=== PATIENT | female | born 1970 | race Native Hawaiian/Other Pacific Islander ===

== ENCOUNTER 2024-06-18 18:15 | Emergency (ER) | payer OTHER, SELFPAY ==
[2024-06-18 18:24] VITALS: BP 100/61; PULSE 73; RESP 16; TEMP 36.8; O2SAT 99
--- NOTE | 2024-06-18 18:51 | ED.GENADULT ---
HPI - General Adult General Chief complaint: Head Injury/Pain Stated complaint: hit head on metal pipe Time Seen by Provider: 06/18/24 18:37 Source: patient Mode of arrival: ambulatory Limitations: no limitations History of Present Illness HPI narrative: 54-year-old female coming in today concerned about headache. Patient states that about 48 hours ago she was at work and she hit her head on a metal pipe. She had immediate pain over the left frontal region where she hit. It did not break skin, she did not have any bleeding. In the last 48 hours her symptoms have not worsened but she continues to have pain right where she was hit in the head. She denies confusion or vomiting. She felt slightly nauseated yesterday. She denies any vision change or changes in her hearing. She denies diffuse headache. She did go to work today and noticed that when she was doing heavy lifting the area of her head that was hit did hurt more. Patient states that she has hit her head in the past which caused vertigo and vomiting. Again she denies any dizziness or vertigo this time around. She has a past medical history also significant for diabetes and hyperlipidemia, unilateral hearing loss. Related Data Home Medications ?Medication ?Instructions ?Recorded ?Confirmed glipizide 10 mg tablet 10 mg PO BID 06/18/24 06/18/24 metformin 1,000 mg tablet 1,000 mg PO BID 06/18/24 06/18/24 simvastatin 10 mg tablet 5 mg PO QHS 06/18/24 06/18/24 Allergies Allergy/AdvReac Type Severity Reaction Status Date / Time No Known Drug Allergies Allergy Verified 06/18/24 18:29 Review of Systems Status of ROS: Reports: 10 or more systems reviewed and unremarkable except as noted in History and below Exam Narrative: Exam Narrative: Well-nourished well-developed patient in no acute distress. Alert and oriented x3. Answers questions appropriately. Mood and affect are appropriate. Thoughts are goal oriented and rational. No tangential or magical thinking noted. Patient speaks in full sentences without needing to catch her breath. HEENT: Normocephalic atraumatic. Pupils are equally round reactive to light. Extraocular muscles are intact. Conjunctivae are moist without any icterus noted. Moist mucous membranes. Posterior pharynx is normal. Neck is soft. I do not see any ecchymosis, broken skin, hematoma or abnormality noted of her scalp. She describes the area that she hit just above the hairline. Strength is 5/5 of the upper and lower extremities. Delete Cranial nerves 3-12 are normal. Delete There is no nystagmus either horizontally or vertically. Gait is normal. Const: Vital Signs, click to edit/add: Vital Signs - 24 hr 06/18/24 18:24 Temperature 98.2 F Pulse Rate [Pulse Oximeter] 73 Respiratory Rate 16 Blood Pressure [Ri ght Upper Arm] 100/61 Pulse Oximetry 99 Oxygen Delivery Me thod Room Air Course Vital Signs Vital signs: Initial Vital Signs Temperature 98.2 F 06/18/24 18:24 Temperature Source Temporal Artery Scan 06/18/24 18:24 Pulse Rate 73 06/18/24 18:24 Respiratory Rate 16 06/18/24 18:24 Blood Pressure 100/61 06/18/24 18:24 Blood Pressure Mean 74 06/18/24 18:24 Blood Pressure Position Sitting 06/18/24 18:24 Pulse Oximetry 99 06/18/24 18:24 Oxygen Delivery Method Room Air 06/18/24 18:24 Vital Signs Temperature 98.2 F 06/18/24 18:24 Pulse Rate 73 06/18/24 18:24 Respiratory Rate 16 06/18/24 18:24 Blood Pressure 100/61 06/18/24 18:24 Pulse Oximetry 99 06/18/24 18:24 Oxygen Delivery Method Room Air 06/18/24 18:24 Temperature 98.2 F 06/18/24 18:24 Pulse Rate 73 06/18/24 18:24 Respiratory Rate 16 06/18/24 18:24 Blood Pressure 100/61 06/18/24 18:24 Pulse Oximetry 99 06/18/24 18:24 Oxygen Delivery Method Room Air 06/18/24 18:24 Medical Decision Making MDM Narrative Medical decision making narrative: 54-year-old female status post closed head injury with localized headache. I do not think that we need to do any imaging today given the fact that her headache again, is localized and her symptoms are not worsening. We discussed the possibility of a mild concussion and brain rest. Discussed symptomatic treatment with anti-inflammatories and ice. I will give her a note for no heavy lifting at work for the next week. Discharge Plan Discharge Clinical Impression: Closed head injury, Mild concussion Patient Disposition: Home, Self-Care Condition: Stable Additional Instructions: Okay to use ibuprofen or Tylenol as needed for pain. Okay to use ice to the painful area, do not apply ice directly to the skin. Recommend no vigorous physical activity or heavy lifting for the next week. Prescriptions: No Action metformin 1,000 mg tablet 1,000 mg PO BID glipizide 10 mg tablet 10 mg PO BID simvastatin 10 mg tablet 5 mg PO QHS Stand Alone Forms: [employer] Info Instructions
== END 2024-06-18 19:09 | disposition home or self-care (01) ==
LOC: ED 19:07
PROVIDERS: Emergency Provider Family Medicine
DX: S06.0X0A Concussion without loss of consciousness, initial encounter (principal); W22.8XXA Striking against or struck by other objects, initial encounter
CPT/HCPCS: 99283

== ENCOUNTER 2025-01-12 21:23 | Emergency (ER) | payer BC, SELFPAY ==
--- OUTSIDE RECORDS SUMMARY | 2025-01-12 21:24 | XMS_ITS | Clinical Summary ---
Author Organization [facility] Address [address] [place] [address] Care Team Providers Care Supervisor Braiding Name Role Phone Needs Pcp, Assignment Primary Care Provider [phone] Source Comments You are receiving this document as you are listed as the primary care provider,follow-up provider, or the patient has been referred to you for consultation.This is in compliance with the Medicare andMedicaid EHR Incentive Program,which states Providers who transition their patient to another setting of careor provider of care or refers their patient to another provider of care shouldprovide summary care record for each transition of care or referral. [facility] Allergies No known active allergies Medications MetFORMIN (GLUMETZA) 1000 MG modified 24 hour release tablet Take 1 tablet by mouth daily (every 24 hours). 10/04/20 09 Active aspirin EC 81 MG enteric coated tablet Take 1 tablet by mouth daily (every 24 hours). 13 10/04/20 09 Active Multiple Vitamins-Minerals (MULTIVITAMIN OR) Take 1 tablet by mouth daily (every 24 hours). 100 13 10/04/20 09 Active glyBURIDE (AKA MICRONASE) 5 MG tablet Take 1 tablet by mouth daily (every 24 hours). LW Addl Instr:Indicated for: Diabetes 07/31/20 07 Active B COMPLEX-C OR Take 1 capsule by mouth daily (every 24 hours). 08/03/20 14 Active naproxen (NAPROSYN) 250 MG tabletIndications:C IN I (cervical intraepithelial neoplasia I) Take 250 mg by mouth two times daily as needed for Pain. Active polyethyl-propylene glycol (SYSTANE) 0.4-0.3 % PF eye dropsIndications:Pt erygium, bilateral Place 1-2 Drops into both eyes three times a day. 28 Each 06/29/20 19 Active Additional Information Patient not taking.Reported on 01/14/2020 Active Problems Problem Noted Date Diagnosed Date Low grade squamous intraepit helial lesion on cytologic smear of cervix (LGSIL) 03/10/2020 Overview (03/10/2020): [facility] Review: History: 05/2007: COLP- SE 1 05/2011: COLP- SE 1, ECC neg 10/2012: COLP neg 10/2012: LEEP- SE 1 05/2013: COLP neg 11/2013: COLP & ECC neg 05/2014: COLP- SE 1, ECC neg 06/2014: LEEP: SE 1, margins neg, ECC neg 07/2015: ASCUS, HPV neg 08/2015: COLP-Pathology suspicious but not diagnostic of low grade squamous intraepithelial lesion. 07/2016: COLP neg 07/2016: ASCUS, HPV neg 08/2016: COLP & ECC neg 09/2017: COLP- ASCUS 11/2018: ECC neg 12/2019: COLP & ECC neg Plan, per ASCCP guidelines: Repeat co-test in 12 months (12/2020) SE I (cervical intraepithelial neoplasia I) 09/2012 Type 2 diabetes mellitus, controlled 10/12/2011 Overview (07/17/2017): Type II or unspecified type diabetes mellitus without mention of complication, not stated as uncontrolled (HRC) Resolved Problems Problem Noted Date Diagnosed Date Resolved Date Abnormal Pap smear of cervix 03/12/2011 11/04/2012 Overview (07/17/2017): LGSIL ; Abnormal Pap smear Encounters Date Type Department Care Team Description 10/21/2024 8:20 AM ARCHITECTURE TECHNICIAN Lab Visit [facility] [address] [place] [address] Type 2 diabetes mellitus without complication, without long-term current use of insulin (HRC) from Last 3 Months Family History Medical History Relation Name Comments Diabetes Mother Cancer, Breast Negative Family History Cancer, Ovary Negative Family History Relation Name Status Comments Father Mother Alive Social History Tobacco Use Types Packs/Day Years Used Date Smoking Tobacco: Never Smokeless Tobacco: Never Alcohol Use Standard Drinks/Week Comments Yes 0 (1 standard drink = 0.6 oz pur e alcohol) occasionaly Comments No Sex and Gender Information Value Date Recorded Sex Assigned at Not on file Legal Sex Female 11:17 PM CDT Gender Identity Not on file Sexual Orientation Not on file Last Filed Vital Signs Vital Sign Reading Time Taken Comments Blood Pressure 115/56 01/14/2020 2:03 PM ARCHITECTURE TECHNICIAN Pulse 70 01/14/2020 2:03 PM ARCHITECTURE TECHNICIAN Temperature - - Respiratory Rate - - Oxygen Saturation - - Inhaled Oxygen Concentration - - Weight 49.8 kg (109 lb 11.2 oz) 01/14/2020 2:03 PM ARCHITECTURE TECHNICIAN Height 147.3 cm (4' 10) 09/07/2016 1:05 PM CDT Body Mass Index 22.93 09/07/2016 1:05 PM CDT Plan of Treatment Upcoming Encounters Date Type Department Care Team (Late st Contact Info) Description 02/06/2025 8:00 AM CDT Appointment [facility] [address] [place] [address] Health Maintenance Due Date Last Done Comments Colon Cancer Screening Plan Due 1968 Diabetes: Foot Exam 1968 Hep C Screening (Preventive Services) 1968 Pneumococcal (1 - PCV) 1974 HIV Screening (Preventive Services) 1984 Adult Preventive Visit 1986 DTaP/Tdap/Td (1 - Tdap) 1987 HepB (1) 1987 Pneumococcal 50+ Yrs (1 of 2 - PCV) 1987 Zoster/Shingles (1 of 2) 2018 Cervical Cancer Screening 01/14/20212019, 01/14/2020 (Completed), 12/09/2018, Additional history exists COVID-19 Vaccine ( season) 2024 03/08/2021, 02/08/2021 Influenza (#1) 2024 02/10/2008 Diabetes: Eye Exam 10/21/2024 10/21/2023, 1 12/21/2022, 07/07/2021, Additional history exists Diabetes: Creatinine 02/14/2025 02/15/2024, 08/16/2023, 05/17/2023, Additional history exists Diabetes: Urine Microalbumin 02/14/2025, 02/15/2023, 11/30/2022, Additional history exists Diabetes: HGBA1C 04/20/2025 10/21/2024, , 02/15/2024, Additional history exists Mammogram 10/10/2025 10/10/2024, 01/25, 09/02/2021, Additional history exists Diabetes: Lipid Panel 02/14/2029 02/15/2024 , 02/15/2023, 11/30/2022, Additional history exists HepA Aged Out No longer eligi ble based on patient's age to complete this topic Hib Aged Out No longer eligi ble based on patient's age to complete this topic IPV (Polio) Aged Out No longer eligi ble based on patient's age to complete this topic MCV4 Aged Out No longer eligi ble based on patient's age to complete this topic Meningococcal B Aged Out No longer el igible based on patient's age to complete this topic Procedures Procedure Name Priority Date/Time Associated Diagnosis Comments HGB A1C Routine 10/21/2024 7:51 AM ARCHITECTURE TECHNICIAN Type 2 diabetes mellitus without complication, without long-term current use of insulin (HRC) MM MAMMOGRAM SCREENING BILAT W 3D FABIANO W CAD Routine 10/10/2024 1:11 PM ARCHITECTURE TECHNICIAN Breast cancer screening by mammogram ALBUMIN/CREAT RATIO Routine 02/15/2024 1 0:07 AM CDT DM (dermatomyositis) (HRC) COMPREHENSIVE METABOLIC PANEL Routine 02/15/2024 9:45 AM CDT DM (dermatomyositis) (HRC) LIPID PANEL & DIRECT LDL (IF NEEDED) Routine 02/15/2024 9:45 AM CDT DM (dermatomyositis) (HRC) ANATOMICAL PATH LIQUID BASED Routine 08/07/2016 3:41 PM CDT from Last 3 Months or Most Recently Relevant to Health Maintenance Results * (ABNORMAL) Hgb A1C (10/21/2024 7:51 AM ARCHITECTURE TECHNICIAN) Hemoglobin A1C (Rapid) 7.5(H) <=5.6 % 10/21/2024 10:24 AM [facility] Estimated Average Glucose (Calc) 169 < 117 mg/dL 10/21/2024 10:24 AM [facility] Comment:Estimated average gl ucose (eAG) converts A1c into glucose units (mg/dL) and estimates average glucose over the past approximately 3 months. The eAG reference interval (<117 mg/dL) corresponds to an A1c of <5.7%. Blood Venipuncture / Unknown 10/21/2024 7:51 AM ARCHITECTURE TECHNICIAN 10/21/2024 8:36 AM ARCHITECTURE TECHNICIAN Narrative [facility] - 10/21/2024 10:24 AM ARCHITECTURE TECHNICIAN For patients not previously diagnosed with diabetes: 5.7-6.4%: Increased risk for diabetes 6.5% and greater: Diagnostic for diabetes For patients diagnosed with diabetes: <8.0%: Goal of therapy for ages 18-75 Clinicians may recommend a higher or lower goal for specific individuals. The test method used for this Hemoglobin A1c result can experience interference from elevated hemoglobin and other hemoglobin variants. In patients with results that do not correlate clinically, contact the lab for further direction. us Beena Barajas MD LAB_1 Final Result [facility] [address] [place] [address], [facility] * MM Mammogram Screening Bilat W 3D Fabiano W CAD (10/10/2024 1:11 PM ARCHITECTURE TECHNICIAN) Anatomical Region Laterality Modality Breast Bilateral Mammography Impressions 10/12/2024 10:17 AM ARCHITECTURE TECHNICIAN : ACR BI-RADS Category 1: Negative RECOMMENDATION: Follow Up Imaging in 12 months - Bilateral The results and recommendations of this examination will be communicated to the patient. Narrative 10/12/2024 10:17 AM ARCHITECTURE TECHNICIAN MM MAMMOGRAM SCREENING BILAT W 3D FABIANO W CAD performed on 10/10/24 FDA Accredited Facility: [facility] [phone] Compared to: 02/21/2023 MM Mammogram Screening Bilat W 3D Fabiano W CAD, 09/02/2021 MM Mammogram Screening Bilat W 3D Fabiano W CAD, and 01/21/2020 MM Mammogram Screening Bilat W 3D Fabiano W CAD FINDINGS: Bilateral screening mammogram was performed with the assistance of Computer-Aided Detection and breast tomosynthesis. The breasts are heterogeneously dense, which may obscure small masses. There is no radiographic evidence of malignancy. Beena Barajas MD RAD MADIE Final Result * (ABNORMAL) Albumin/Creatinine Ratio,Random Urine (02/15/2024 10:07 AM CDT) Albumin/Creati nine Ratio, Urine, Random 34(H) <30 mg/g 02/15/2024 12:22 PM T [facility] Albumin, Urine, Random 16.9 mg/L 02/15/2024 12:[address] [facility] Creatinine, Urine, Random 49 >20 mg/dL mg/dL 02/15/2024 12:[address] [facility] Urine Non-blood Collection / Unknown 02/15/2024 10:07 AM CDT 02/15/2024 10:07 AM CDT Beena Barajas MD LAB_1 Final Result [facility] [address] [place] [address] * Lipid Panel (reflex to Direct LDL if indicated) (02/15/2024 9:45 AM CDT) Cholesterol 148 0 - 199 mg/dL 02/15/2024 11:49 AM T [facility] Triglyceride 126 <=149 mg/dL 02/15/2024 11:[address] [facility] HDL Cholesterol 42 >=40 mg/dL 11:[address] [facility] LDL, Calculated 81 <130 mg/dL 11:[address] [facility] Non HDL Chol, Calculated 106 <=159 mg/dL 02/15/2024 11:[address] [facility] Cholesterol/HDL Ratio 3.5 <=5.0 02/15/2024 11:[address] [facility] Hours Fasting 10.0 8 - 12 Hours 02/15/2024 11:[address] [facility] Blood Venipuncture / Unknown 02/15/2024 9:45 AM CDT 02/15/2024 9:53 AM CDT us Beena Barajas MD LAB_1 Final Result [facility] [address] [place] [address] * (ABNORMAL) Comp Metabolic Panel (02/15/2024 9:45 AM CDT) Sodium 137 136 - 145 mmol/L 02/15/2024 11:[address] [facility] Potassium 4.4 3.5 - 5.1 mmol/L 02/15/2024 11:[address] [facility] Chloride 104 98 - 109 mmol/L 02/15/2024 11:[address] [facility] CO2 24 20 - 29 mmol/L 02/15/2024 11:[address] [facility] Anion Gap 9 7 - 16 mmol/L 02/15/2024 11:[address] [facility] Calcium 9.9 8.4 - 10.4 mg/dL 02/15/2024 11:[address] [facility] BUN 27(H) 7 - 26 mg/dL 02/15/2024 11:[address] [facility] Creatinine 1.30(H) 0.55 - 1.02 mg/dL 02/15/2024 11:[address] [facility] Alkaline Phosphatase 116 40 - 150 U/L 02/15/2024 11:[address] [facility] AST (SGOT) 22 10 - 40 U/L 02/15/2024 11:[address] [facility] ALT (SGPT) 17 <=55 U/L 02/15/2024 11:[address] [facility] Bilirubin, Total 0.3 0.2 - 1.2 mg/dL 02/15/2024 11:[address] [facility] Protein, Total 7.6 6.4 - 8.3 g/dL 02/15/2024 11:[address] [facility] Albumin 3.7 3.5 - 5.0 g/dL 02/15/2024 11:[address] [facility] Glucose 131(H) 70 - 100 mg/dL 02/15/2024 11:[address] [facility] Comment:The given reference range is for the fasting state. Non-fasting reference range for glucose is 70 - 180 mg/dL. GFR, Estimated 49(L) >60 mL/min/1.7 3m2 02/15/2024 11:[address] [facility] Hours Fasting 10.0 8 - 12 Hours 02/15/2024 11:[address] [facility] Blood Venipuncture / Unknown 02/15/2024 9:45 AM CDT 02/15/2024 9:53 AM CDT Narrative [facility] - 02/15/2024 11:49 AM CDT The National Kidney Disease Education Program suggests measuring Cystatin C in patients with eGFRcrea of 45 to 59 ml/min/1.73^2 who do not have other markers of kidney damage (i.e. elevated urine Albumin/Creatinine Ratio or a prior Cystatin C confirming the presence of chronic kidney disease). us Beena Barajas MD LAB_1 Final Result [facility] [address] [place] [address], [facility] * Pap Smear (08/07/2016 3:41 PM CDT) 08/07/2016 3:41 PM CDT Narrative [facility] - 08/14/2016 5:30 PM CDT FINAL GYNECOLOGICAL CYTOLOGY REPORT Pathology #: [id number] Date Obtained: 08/07/2016 Date Received: 08/08/2016 [id number] INTERPRETATION/RESULTS: Atypical squamous cells of undetermined significance (ASCUS). If requested and applicable, HPV testing will be performed and reported separately, per ACOG guidelines. SPECIMEN ADEQUACY: Satisfactory for Evaluation. Endocervical cells/transformation zone component present. Verified on 08/14/2016 by KATERINA BLAKE MD (electronic signature) CLINICAL NOTES: Abnormal bleeding: No, LMP: 2013, Menstrual status: Post Menopausal, Current form of therapy: None apply LIQUID BASED PAP SMEAR SPECIMEN TYPE: ROUTINE CERVICAL PAP TEST PLEASE NOTE: The pap smear is a screening test designed to aid in the detection of cervical cancer and its precursor lesions. It is not a diagnostic procedure and should not be used as the sole means of detecting cervical cancer. Both false-positive and false-negative reports may occur. Performed at [address] [address] us Darnell Torres MD LAB_1 Final Res ult [facility] [address] [place] [address] [id number] from Last 3 Months or Most Recently Relevant to Health Maintenance Care Teams Supervisor Braiding Relationship Specialty Start Date End Date Needs PcpJames [place], [place] [id number] PCP - General 11/04/13
--- OUTSIDE RECORDS SUMMARY | 2025-01-12 21:24 | XMS_ITS | Clinical Summary ---
Author Organization [facility] Address [address] [place] [id number] Care Team Providers Care Director Camp Name Role Phone Beena Barajas MD Primary Care Provider [phone] Allergies No known active allergies Medications GLYBURIDE 5 MG TAB take 1 tablet (5 mg) by oral route once daily before breakfast Active metFORMIN sustained release (GLUMETZA) 1,000 mg tablet Take 1 tablet by mouth 2 times daily. 9 Active naproxen (NAPROSYN) 250 mg tablet Take 250 mg by mouth 2 times daily if needed. 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 Calcified, inactive lesions only. Discussed with ID, no treatment or follow-up needed unless new neurologic sx such as seizure. Presbyopia 06/07/2017 Alternating exotropia 06/07/2017 Pterygium of both eyes 06/07/2017 DM type 2 (diabetes mellitus, type 2) Encounters Date Type Department Care Team Description 01/11/2025 Nurse Triage [facility] [place] [address] [place] [address] Beena Barajas MD Flank Pain from Last 3 Months Immunizations Name Administration Dates Next Due Influenza A (H1N1), Inactivated 11/12/2009 Influenza, IIV3 (Age >=3 years) 02/10/2008 Family History Medical History Relation Name Comments Diabetes Mother Relation Name Status Comments Mother Social History Tobacco Use Types Packs/Day Years Used Date Smoking Tobacco: Never Passive Smoke Exposure: Never Smokeless Tobacco: Never Tobacco Cessation:Counseling Given: Not Answered Alcohol Use Standard Drinks/Week Comments Not Currently 0 (1 standard drink = 0.6 oz pur e alcohol) ocassions PHQ-2 Answer Date Recorded PHQ-2 TOTAL SCORE 0 02/29/2020 Social Connections Answer Date Recorded Frequency of Communication with Friends and Fami ly Not on file 11/25/2021 Financial Resource Strain Answer Date R ecorded Difficulty of Paying Living Expenses Not on file 11/25/2021 Difficulty of Paying Living Expenses Not on file 11/25/2021 Comments No Sex and Gender Information Value Date Recorded Sex Assigned at Not on file Legal Sex Female 7:22 AM [employer]Y [employer] Gender Identity Not on file Sexual Orientation Not on file 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 on file Not on file Not on file Obstetrics History Last Filed Vital Signs Vital Sign Reading Time Taken Comments Blood Pressure 105/52 06/18/2024 3:53 PM CDT MAP - 73 Pulse 74 06/18/2024 3:53 PM CDT Temperature 37 C (98.6 F) 06/18/2024 3:53 PM CDT Respiratory Rate 16 06/18/2024 3:53 PM CDT Oxygen Saturation 98% 06/18/2024 3:53 PM CDT Inhaled Oxygen Concentration - - Weight 48.1 kg (106 lb) 03/21/2020 12:00 PM CDT Height 148.6 cm (4' 10.5) 03/09/2020 11:20 AM C DT Body Mass Index 21.77 03/09/2020 11:20 AM CDT Plan of Treatment Upcoming Encounters Date Type Department Care Team (Late st Contact Info) Description 01/14/2025 10:50 AM HONEY PRODUCER Office Visit [facility] [address] [place] [address] Nava Melo MD [address] [place] [address] Health Maintenance Due Date Last Done Comments Tdap 1979 HIV for age 15-65 1983 Hepatitis C screening for ag e 18-79 1986 Pneumococcal series for age 50+ (1 of 2 - PCV) 1987 Tetanus booster 1988 Pap test for age 21-65 1989 Colonoscopy through age 75 2013 Lipids for age 45-75 2013 Zoster (shingles) series for age 50+ (1 of 2) 2018 Mammogram for age 45-75 11/28/2019 11/28/2018 Depression screening for age 12+ 03/03/2021 03/03/2020, 02/29/2020, 12/03/2018 BMI (ht and wt on same day) for age 18+ 03/09/2021 03/09/2020, 02/29/2020, 12/03/2018, Additional history exists COVID-19 vaccine series ( season) 2024 03/08/2021, 02/08/2021 Influenza for age 50-64 07/26/2024 11/12/2009, 02/09 Procedures Procedure Name Priority Date/Time Associated Diagnosis Comments XR MAMMO FABIANO BILAT SCREEN Routine 11/28/2018 3:09 PM HONEY PRODUCER Visit for screening mammogram from Last 3 Months or Most Recently Relevant to Health Maintenance Results * XR MAMMO FABIANO BILAT SCREEN (11/28/2018 3:09 PM HONEY PRODUCER) Anatomical Region Laterality Modality BREASTS, Breast Left, Breast Right Bilateral Mammography Impressions 12/01/2018 11:06 AM HONEY PRODUCER There is no radiographic evidence for malignancy. Recommend annual mammograms. A lay language report of this examination will be provided to the patient. MAMMOGRAM ASSESSMENT: ACR 1 Negative Narrative 12/01/2018 11:06 AM HONEY PRODUCER XR MAMMO FABIANO BILAT SCREEN [[id number]] CLINICAL HISTORY: This is an asymptomatic 48 y.o. patient. INDICATION FOR EXAM: Mammogram Screening. TECHNIQUE: CC & MLO views were obtained. This digital study was evaluated with the assistance of Computer-Aided Detection. Breast Tomosynthesis was used in interpretation. COMPARISON FILM: Yes 08/14/17 MP GONZALEZ FINDINGS: Mammographically, the breast tissue is heterogeneously dense, which could obscure detection of small masses. There are no dominant masses, suspicious micro calcifications or areas of architectural distortion. us Beena Barajas MD MAMMO Final Result from Last 3 Months or Most Recently Relevant to Health Maintenance Care Teams Director Camp Relationship Specialty Start Date End Date Beena Barajas MD [facility] [place] [address] PCP - General Family Practice 01/18/21
[2025-01-12 21:29] VITALS: BP 161/85; PULSE 88; RESP 16; TEMP 35.9; O2SAT 98
[2025-01-12 21:48] LABS: Appearance Urine Clear (Clear); Bilirubin Urine Negative (Negative); Blood Urine Trace-intact (Negative); Color Urine Yellow (Yellow); Glucose Urine Negative (Negative); Ketones Urine Negative (Negative); Leukocyte Esterase Urine Negative (Negative); Nitrite Urine Negative (Negative); Protein Urine Negative (Negative); Urobilinogen Urine 0.2 (0.2-1.0)
[2025-01-12 22:24] LABS: RBC Urine 0-2 (0-2); WBC Urine 0-2 (0-5)
--- NOTE | 2025-01-12 22:24 | ED_ITS ---
HPI - General Adult General Date Seen: 01/12/25 Chief complaint: Chest Pain Stated complaint: chest pain Time Seen by Provider: 01/12/25 21:24 Source: patient and family (Daughter is interpreting) Mode of arrival: ambulatory Limitations: no limitations History of Present Illness HPI narrative: Patient is a 54-year-old female with a history of diabetes on metformin and glipizide presenting to the emergency department for multiple complaints. For the past 2 days she has been having some epigastric pain that she states feels like it goes up to her chest. Has some burning sensation with that. States she will have pain in her upper abdomen/lower chest when she takes a deep breath. No history of blood clots. Denies any other chest pain. No history of heart disease. No previous abdominal surgeries. Is also having left flank pain. She has been having issues with her left flank pain for several months and was told it was a.m. muscle strain but has been worse over the past few days. States will be a sharp pain in her left back that is new for her. Denies fevers, chills, diarrhea, constipation, headache, vision changes, weakness, numbness. She has been having a mild cough to which she states will make her left flank pain worse. Has not had any nausea. No other concerns noted. Related Data Home Medications ?Medication ?Instructions ?Recorded ?Confirmed glipizide 10 mg tablet 10 mg PO BID 06/18/24 01/12/25 metformin 1,000 mg tablet 1,000 mg PO BID 06/18/24 01/12/25 simvastatin 10 mg tablet 5 mg PO QHS 06/18/24 01/12/25 Previous Rx's ?Medication ?Instructions ?Recorded ketorolac 10 mg tablet 10 mg PO Q6H PRN pain #20 tabs 01/12/25 oseltamivir 75 mg capsule 75 mg PO BID 5 days #10 caps 01/12/25 pantoprazole 40 mg tablet,delayed 40 mg PO DAILY #10 tabs 01/12/25 release Allergies Allergy/AdvReac Type Severity Reaction Status Date / Time No Known Drug Allergies Allergy Verified 06/18/24 18:29 Review of Systems Status of ROS: Reports: 10 or more systems reviewed and unremarkable except as noted in History and below PFSH PFSH Social History Do you use any of these nicotine containing products: None How often do you have a drink containing alcohol: never AUDIT-C Alcohol total score: 0 Non-prescribed substance use: denies use Exam Narrative: Exam Narrative: Const: Well-nourished, Well-developed, in mild distress Eyes: PERRL, no conjunctival injection, and symmetrical lids HENT: Atraumatic external nose and ears. Moist mucous membranes. Neck: Symmetric, trachea midline, No thyromegaly. CVS: RRR, No murmurs or gallops. Peripheral pulses 2+ and equal in all extremities RESP: Unlabored respiratory effort. Clear to auscultation bilaterally. GI: Epigastric tenderness, Nondistended, No rebound or guarding. No CVA tenderness MSK:Extremities w/o deformity, Normal Active ROM Skin: Warm, Dry. No rashes or lesions. Neuro: Normal Muscle tone, No focal neurological deficits. Psych: Awake, Alert, & Oriented x3. Appropriate mood and affect. Const: Vital Signs, click to edit/add: Vital Signs - 24 hr 01/12/25 21:29 Temperature 96.7 F L Pulse Rate [Pulse Oximeter] 88 Respiratory Rate 16 Blood Pressure [Ri ght Upper Arm] 161/85 H Pulse Oximetry 98 Oxygen Delivery Me thod Room Air Course Vital Signs Vital signs: Initial Vital Signs Temperature 96.7 F L 01/12/25 21:29 Temperature Source Temporal Artery Scan 01/12/25 21:29 Pulse Rate 88 01/12/25 21:29 Respiratory Rate 16 01/12/25 21: Blood Pressure 161/85 H 01/12/25 21:29 Blood Pressure Mean 110 H 01/12/25 21:29 Blood Pressure Position Sitting 01/12/25 21:29 Pulse Oximetry 98 01/12/25 21:29 Oxygen Delivery Method Room Air 01/12/25 21:29 Vital Signs Temperature 96.7 F L 01/12/25 21:29 Pulse Rate 88 01/12/25 21:29 Respiratory Rate 16 01/12/25 21:29 Blood Pressure 161/85 H 01/12/25 21:29 Pulse Oximetry 98 01/12/25 21:29 Oxygen Delivery Method Room Air 01/12/25 21:29 Temperature 96.7 F L 01/12/25 21:29 Pulse Rate 88 01/12/25 21:29 Respiratory Rate 16 01/12/25 21:29 Blood Pressure 161/85 H 01/12/25 21:29 Pulse Oximetry 98 01/12/25 21:29 Oxygen Delivery Method Room Air 01/12/25 21:29 Medications Administered Medications: Discontinued Medications Generic Name Dose Route Start Last Admin Trade Name Lissette PRN Reason Stop Dose Admin Ketorolac Tromethamine 15 mg 01/12/25 21:54 01/12/25 22:33 Ketorolac 15 Mg/Ml Inj IVP 01/12/25 21:55 15 mg ONCE ONE Administration Lidocaine/Aluminum/Magnesium/Simeth 30 ml 01/12/25 22:24 01/12/25 22:38 Gi Cocktail (Visc Lido/Antacid) 30 Ml PO 01/12/25 22:25 30 ml ONCE ONE Administration Medical Decision Making MDM Narrative Medical decision making narrative: Patient is a 54-year-old female presenting for multiple complaints. Is unclear if she is truly having chest pain or shortness of breath or so this is more re lated to her abdominal pain. Will evaluate her for blood clot due to pain with deep breaths. Will hold off on choosing imaging until D-dimer returns. Imaging also look for pneumothorax or pneumonia. EKG and troponin order to look for signs of ACS as epigastric pain can be a sign of heart disease. As she is otherwise stable aortic aneurysm and aortic dissection seem unlikely. For her flank pain this could be an exacerbation of her previous muscle strain but will need a CT scan to rule out any nephrolithiasis or possible pyelonephritis. Lipase ordered shows check for pancreatitis for epigastric pain. Likely her epigastric pain is related to gastritis. Will also order urinalysis, COVID/flu/RSV, CBC, CMP, magnesium. GI cocktail ordered to see if it helps with her epigastric pain. Toradol given for flank pain. D-dimer within normal limits. Chest x-ray will be ordered. She is flu positive. This is likely the cause of much of her symptoms. She has a slightly elevated lipase but not high enough to be consistent with pancreatitis. She is feeling better after the GI cocktail and Toradol. White blood cell count is slightly low but this is consistent with a viral infection. Urinalysis shows no concerning findings. EKG and troponin shows no concerning findings. Imaging reviewed by myself and the radiologist shows no acute concerning abnormalities. Most likely or symptoms related to her influenza. On my review vital signs are stable throughout time in in the emergency department. Oximetry stayed in the mid to high 90s. vp delivery showed no concerning arrhythmias. EKG and troponin showed no acute concerning abnormalities. At this point I believe she is safe for discharge. 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 Will also give her an antacid for her stomach. Also gave her Toradol for her pain. She is agreeable to this plan. Lab Data Labs: Lab Results 01/12/25 01/12/25 01/12/25 Range/Units 21:41 21:55 22:00 WBC 3.11 L (4.50-11.00) K/uL RBC 3.64 L (4.00-5.20) m/uL Hgb 9.8 L (12.0-16.0) gm/dL Hct 30.6 L (33.0-51.0) % MCV 84 (80-100) fL MCH 27 (26-34) pg MCHC 32 (32-36) gm/dL RDW Coeff of Zane 14.3 (11.5-15.5) % Plt Count 211 (140-440) K/uL Neut % (Auto) 53.4 (42.0-72.0) % Lymph % (Auto) 32.8 (20-44) % Kane % (Auto) 9.3 (0.0-11.0) % Eos % (Auto) 3.9 (0.0-7.0) % Baso % (Auto) 0.3 (0.0-3.0) % Neut # (Auto) 1.70 (1.7-7.0) K/uL Lymph # (Auto) 1.00 (0.90-2.90) K/uL Kane # (Auto) 0.30 (0.00-0.90) K/UL Eos # (Auto) 0.10 (0.00-0.50) K/uL Baso # (Auto) 0.00 (0.00-0.30) K/uL Abs Immat Gran (auto) 0.00 (0.00-0.30) K/uL Imm/Tot Granulo (auto) 0.3 % D-Dimer Quant (PE/DVT) 0.32 (0.00-0.50) ug/ml Sodium Cancelled Potassium Chloride Carbon Dioxide Anion Gap BUN Creatinine Estimated Creat Clear Estimated GFR Glucose Calcium Magnesium (1.5-2.6) mg/dL Total Bilirubin AST ALT Alkaline Phosphatase Troponin I (0.01-0.04) ng/mL Total Protein Albumin Lipase (23-300) U/L Urine Color Yellow (Yellow) Urine Appearance Clear (Clear) Urine pH 6.0 (5.0-8.5) Ur Specific [place] 1.010 (1.000-1.030) Urine Protein Negative (Negative) Urine Glucose (UA) Negative (Negative) Urine Ketones Negative (Negative) Urine Blood Trace-intact A (Negative) Urine Nitrite Negative (Negative) Urine Bilirubin Negative (Negative) Urine Urobilinogen 0.2 (0.2-1.0) Ur Leukocyte Esterase Negative (Negative) Urine RBC 0-2 (0-2) Urine WBC 0-2 (0-5) Ur Squamous Epith Cells None (None-Few) Urine Bacteria None (None) SARS-CoV-2 (PCR) (Negative) Influenza Type A (PCR) (Negative) Influenza Type B (PCR) (Negative) RSV (PCR) (Negative) POC Troponin I 0.00 L (0.01-0.04) ng/ml 01/12/25 01/12/25 01/12/25 Range/Units 22:00 22:00 22:00 WBC (4.50-11.00) K/uL RBC (4.00-5.20) m/uL Hgb (12.0-16.0) gm/dL Hct (33.0-51.0) % MCV (80-100) fL MCH (26-34) pg MCHC (32-36) gm/dL RDW Coeff of Zane (11.5-15.5) % Plt Count (140-440) K/uL Neut % (Auto) (42.0-72.0) % Lymph % (Auto) (20-44) % Kane % (Auto) (0.0-11.0) % Eos % (Auto) (0.0-7.0) % Baso % (Auto) (0.0-3.0) % Neut # (Auto) (1.7-7.0) K/uL Lymph # (Auto) (0.90-2.90) K/uL Kane # (Auto) (0.00-0.90) K/UL Eos # (Auto) (0.00-0.50) K/uL Baso # (Auto) (0.00-0.30) K/uL Abs Immat Gran (auto) (0.00-0.30) K/uL Imm/Tot Granulo (auto) % D-Dimer Quant (PE/DVT) (0.00-0.50) ug/ml Sodium 134 L Potassium Cancelled 4.5 Chloride Cancelled 100 Carbon Dioxide Cancelled Anion Gap BUN Creatinine Estimated Creat Clear Estimated GFR Glucose Calcium Magnesium (1.5-2.6) mg/dL Total Bilirubin AST ALT Alkaline Phosphatase Troponin I (0.01-0.04) ng/mL Total Protein Albumin Lipase (23-300) U/L Urine Color (Yellow) Urine Appearance (Clear) Urine pH (5.0-8.5) Ur Specific [place] (1.000-1.030) Urine Protein (Negative) Urine Glucose (UA) (Negative) Urine Ketones (Negative) Urine Blood (Negative) Urine Nitrite (Negative) Urine Bilirubin (Negative) Urine Urobilinogen (0.2-1.0) Ur Leukocyte Esterase (Negative) Urine RBC (0-2) Urine WBC (0-5) Ur Squamous Epith Cells (None-Few) Urine Bacteria (None) SARS-CoV-2 (PCR) (Negative) Influenza Type A (PCR) (Negative) Influenza Type B (PCR) (Negative) RSV (PCR) (Negative) POC Troponin I (0.01-0.04) ng/ml 01/12/25 01/12/25 01/12/25 Range/Units 22:00 22:00 22:00 WBC (4.50-11.00) K/uL RBC (4.00-5.20) m/uL Hgb (12.0-16.0) gm/dL Hct (33.0-51.0) % MCV (80-100) fL MCH (26-34) pg MCHC (32-36) gm/dL RDW Coeff of Zane (11.5-15.5) % Plt Count (140-440) K/uL Neut % (Auto) (42.0-72.0) % Lymph % (Auto) (20-44) % Kane % (Auto) (0.0-11.0) % Eos % (Auto) (0.0-7.0) % Baso % (Auto) (0.0-3.0) % Neut # (Auto) (1.7-7.0) K/uL Lymph # (Auto) (0.90-2.90) K/uL Kane # (Auto) (0.00-0.90) K/UL Eos # (Auto) (0.00-0.50) K/uL Baso # (Auto) (0.00-0.30) K/uL Abs Immat Gran (auto) (0.00-0.30) K/uL Imm/Tot Granulo (auto) % D-Dimer Quant (PE/DVT) (0.00-0.50) ug/ml Sodium Potassium Chloride Carbon Dioxide 23 Anion Gap Cancelled 11 BUN Cancelled 26 Creatinine Cancelled Estimated Creat Clear Estimated GFR Glucose Calcium Magnesium (1.5-2.6) mg/dL Total Bilirubin AST ALT Alkaline Phosphatase Troponin I (0.01-0.04) ng/mL Total Protein Albumin Lipase (23-300) U/L Urine Color (Yellow) Urine Appearance (Clear) Urine pH (5.0-8.5) Ur Specific [place] (1.000-1.030) Urine Protein (Negative) Urine Glucose (UA) (Negative) Urine Ketones (Negative) Urine Blood (Negative) Urine Nitrite (Negative) Urine Bilirubin (Negative) Urine Urobilinogen (0.2-1.0) Ur Leukocyte Esterase (Negative) Urine RBC (0-2) Urine WBC (0-5) Ur Squamous Epith Cells (None-Few) Urine Bacteria (None) SARS-CoV-2 (PCR) (Negative) Influenza Type A (PCR) (Negative) Influenza Type B (PCR) (Negative) RSV (PCR) (Negative) POC Troponin I (0.01-0.04) ng/ml 01/12/25 01/12/25 01/12/25 Range/Units 22:00 22:00 22:00 WBC (4.50-11.00) K/uL RBC (4.00-5.20) m/uL Hgb (12.0-16.0) gm/dL Hct (33.0-51.0) % MCV (80-100) fL MCH (26-34) pg MCHC (32-36) gm/dL RDW Coeff of Zane (11.5-15.5) % Plt Count (140-440) K/uL Neut % (Auto) (42.0-72.0) % Lymph % (Auto) (20-44) % Kane % (Auto) (0.0-11.0) % Eos % (Auto) (0.0-7.0) % Baso % (Auto) (0.0-3.0) % Neut # (Auto) (1.7-7.0) K/uL Lymph # (Auto) (0.90-2.90) K/uL Kane # (Auto) (0.00-0.90) K/UL Eos # (Auto) (0.00-0.50) K/uL Baso # (Auto) (0.00-0.30) K/uL Abs Immat Gran (auto) (0.00-0.30) K/uL Imm/Tot Granulo (auto) % D-Dimer Quant (PE/DVT) (0.00-0.50) ug/ml Sodium Potassium Chloride Carbon Dioxide Anion Gap BUN Creatinine 1.3 Estimated Creat Clear Cancelled Estimated GFR Cancelled 48 Glucose Cancelled 110 Calcium Cancelled Magnesium (1.5-2.6) mg/dL Total Bilirubin AST ALT Alkaline Phosphatase Troponin I (0.01-0.04) ng/mL Total Protein Albumin Lipase (23-300) U/L Urine Color (Yellow) Urine Appearance (Clear) Urine pH (5.0-8.5) Ur Specific [place] (1.000-1.030) Urine Protein (Negative) Urine Glucose (UA) (Negative) Urine Ketones (Negative) Urine Blood (Negative) Urine Nitrite (Negative) Urine Bilirubin (Negative) Urine Urobilinogen (0.2-1.0) Ur Leukocyte Esterase (Negative) Urine RBC (0-2) Urine WBC (0-5) Ur Squamous Epith Cells (None-Few) Urine Bacteria (None) SARS-CoV-2 (PCR) (Negative) Influenza Type A (PCR) (Negative) Influenza Type B (PCR) (Negative) RSV (PCR) (Negative) POC Troponin I (0.01-0.04) ng/ml 01/12/25 01/12/25 01/12/25 Range/Units 22:00 22:00 22:00 WBC (4.50-11.00) K/uL RBC (4.00-5.20) m/uL Hgb (12.0-16.0) gm/dL Hct (33.0-51.0) % MCV (80-100) fL MCH (26-34) pg MCHC (32-36) gm/dL RDW Coeff of Zane (11.5-15.5) % Plt Count (140-440) K/uL Neut % (Auto) (42.0-72.0) % Lymph % (Auto) (20-44) % Kane % (Auto) (0.0-11.0) % Eos % (Auto) (0.0-7.0) % Baso % (Auto) (0.0-3.0) % Neut # (Auto) (1.7-7.0) K/uL Lymph # (Auto) (0.90-2.90) K/uL Kane # (Auto) (0.00-0.90) K/UL Eos # (Auto) (0.00-0.50) K/uL Baso # (Auto) (0.00-0.30) K/uL Abs Immat Gran (auto) (0.00-0.30) K/uL Imm/Tot Granulo (auto) % D-Dimer Quant (PE/DVT) (0.00-0.50) ug/ml Sodium Potassium Chloride Carbon Dioxide Anion Gap BUN Creatinine Estimated Creat Clear Estimated GFR Glucose Calcium 9.4 Magnesium 1.8 (1.5-2.6) mg/dL Total Bilirubin Cancelled 0.3 AST Cancelled 33 ALT Cancelled Alkaline Phosphatase Troponin I (0.01-0.04) ng/mL Total Protein Albumin Lipase (23-300) U/L Urine Color (Yellow) Urine Appearance (Clear) Urine pH (5.0-8.5) Ur Specific [place] (1.000-1.030) Urine Protein (Negative) Urine Glucose (UA) (Negative) Urine Ketones (Negative) Urine Blood (Negative) Urine Nitrite (Negative) Urine Bilirubin (Negative) Urine Urobilinogen (0.2-1.0) Ur Leukocyte Esterase (Negative) Urine RBC (0-2) Urine WBC (0-5) Ur Squamous Epith Cells (None-Few) Urine Bacteria (None) SARS-CoV-2 (PCR) (Negative) Influenza Type A (PCR) (Negative) Influenza Type B (PCR) (Negative) RSV (PCR) (Negative) POC Troponin I (0.01-0.04) ng/ml 01/12/25 01/12/25 01/12/25 Range/Units 22:00 22:00 22:00 WBC (4.50-11.00) K/uL RBC (4.00-5.20) m/uL Hgb (12.0-16.0) gm/dL Hct (33.0-51.0) % MCV (80-100) fL MCH (26-34) pg MCHC (32-36) gm/dL RDW Coeff of Zane (11.5-15.5) % Plt Count (140-440) K/uL Neut % (Auto) (42.0-72.0) % Lymph % (Auto) (20-44) % Kane % (Auto) (0.0-11.0) % Eos % (Auto) (0.0-7.0) % Baso % (Auto) (0.0-3.0) % Neut # (Auto) (1.7-7.0) K/uL Lymph # (Auto) (0.90-2.90) K/uL Kane # (Auto) (0.00-0.90) K/UL Eos # (Auto) (0.00-0.50) K/uL Baso # (Auto) (0.00-0.30) K/uL Abs Immat Gran (auto) (0.00-0.30) K/uL Imm/Tot Granulo (auto) % D-Dimer Quant (PE/DVT) (0.00-0.50) ug/ml Sodium Potassium Chloride Carbon Dioxide Anion Gap BUN Creatinine Estimated Creat Clear Estimated GFR Glucose Calcium Magnesium (1.5-2.6) mg/dL Total Bilirubin AST ALT 24 Alkaline Phosphatase Cancelled 114 Troponin I < 0.01 L (0.01-0.04) ng/mL Total Protein Cancelled 7.2 Albumin Cancelled Lipase (23-300) U/L Urine Color (Yellow) Urine Appearance (Clear) Urine pH (5.0-8.5) Ur Specific [place] (1.000-1.030) Urine Protein (Negative) Urine Glucose (UA) (Negative) Urine Ketones (Negative) Urine Blood (Negative) Urine Nitrite (Negative) Urine Bilirubin (Negative) Urine Urobilinogen (0.2-1.0) Ur Leukocyte Esterase (Negative) Urine RBC (0-2) Urine WBC (0-5) Ur Squamous Epith Cells (None-Few) Urine Bacteria (None) SARS-CoV-2 (PCR) (Negative) Influenza Type A (PCR) (Negative) Influenza Type B (PCR) (Negative) RSV (PCR) (Negative) POC Troponin I (0.01-0.04) ng/ml 01/12/25 Range/Units 22:00 WBC (4.50-11.00) K/uL RBC (4.00-5.20) m/uL Hgb (12.0-16.0) gm/dL Hct (33.0-51.0) % MCV (80-100) fL MCH (26-34) pg MCHC (32-36) gm/dL RDW Coeff of Zane (11.5-15.5) % Plt Count (140-440) K/uL Neut % (Auto) (42.0-72.0) % Lymph % (Auto) (20-44) % Kane % (Auto) (0.0-11.0) % Eos % (Auto) (0.0-7.0) % Baso % (Auto) (0.0-3.0) % Neut # (Auto) (1.7-7.0) K/uL Lymph # (Auto) (0.90-2.90) K/uL Kane # (Auto) (0.00-0.90) K/UL Eos # (Auto) (0.00-0.50) K/uL Baso # (Auto) (0.00-0.30) K/uL Abs Immat Gran (auto) (0.00-0.30) K/uL Imm/Tot Granulo (auto) % D-Dimer Quant (PE/DVT) (0.00-0.50) ug/ml Sodium Potassium Chloride Carbon Dioxide Anion Gap BUN Creatinine Estimated Creat Clear Estimated GFR Glucose Calcium Magnesium (1.5-2.6) mg/dL Total Bilirubin AST ALT Alkaline Phosphatase Troponin I (0.01-0.04) ng/mL Total Protein Albumin 4.4 Lipase 344 H (23-300) U/L Urine Color (Yellow) Urine Appearance (Clear) Urine pH (5.0-8.5) Ur Specific [place] (1.000-1.030) Urine Protein (Negative) Urine Glucose (UA) (Negative) Urine Ketones (Negative) Urine Blood (Negative) Urine Nitrite (Negative) Urine Bilirubin (Negative) Urine Urobilinogen (0.2-1.0) Ur Leukocyte Esterase (Negative) Urine RBC (0-2) Urine WBC (0-5) Ur Squamous Epith Cells (None-Few) Urine Bacteria (None) SARS-CoV-2 (PCR) Negative SARS-CoV-2 (Negative) Influenza Type A (PCR) POSITIVE PCR FLU A A (Negative) Influenza Type B (PCR) Negative PCR FLU B (Negative) RSV (PCR) Negative PCR RSV (Negative) POC Troponin I (0.01-0.04) ng/ml Imaging Data Chest x-ray: Attestation: I have reviewed the pertinent imaging results. Radiologist's impression: No acute or significant findings. Dictated by Jae Frankel MD @ 01/12/2025 11:43:[address] scan abdomen and pelvis: Attestation: I have reviewed the pertinent imaging results. Radiologist's impression: No acute intra-abdominal/pelvic abnormality, including obstructive uropathy. Moderate colonic stool burden. Please note that all CT scans at this facility use dose modulation, iterative reconstruction, and/or weight-based dosing when appropriate to reduce radiation dose to as low as reasonably achievable. Dictated by Jae Frankel MD @ 01/12/2025 11:48:05 PM ECG Data Attestation: I personally reviewed and interpreted this ECG as follows: Prior ECG tracings: not available for review Interpretation: Normal sinus rhythm with rate 91 beats per minute, normal intervals, normal axis, no ST or T-wave abnormalities. Discharge Plan Discharge Clinical Impression: Influenza Patient Disposition: Home, Self-Care Condition: Improved Instructions: Influenza (DC) Additional Instructions: Take the Tamiflu for her influenza. I will also prescribe Toradol for pain and Protonix for her upset stomach. While she is using Toradol do not use other NSAIDs such as ibuprofen or naproxen. Return to emergency department for new or worsening symptoms. Prescriptions: New ketorolac 10 mg tablet 10 mg PO Q6H PRN (Reason: pain) Qty: 20 0RF Rx Instructions: maximum total duration of 5 days from all oral, intranasal, or parenteral formulations pantoprazole 40 mg tablet,delayed release (DR/EC) 40 mg PO DAILY Qty: 10 0RF oseltamivir 75 mg capsule 75 mg PO BID 5 Days Qty: 10 0RF No Action metformin 1,000 mg tablet 1,000 mg PO BID glipizide 10 mg tablet 10 mg PO BID simvastatin 10 mg tablet 5 mg PO QHS Follow Up/Referrals: Provider,Not a Local [Primary Care Provider] - Stand Alone Forms: Fatigue Science Info Instructions
--- OUTSIDE RECORDS SUMMARY | 2025-01-12 22:29 | XMS_ITS | Clinical Summary ---
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 on file Not on file Not [...] st Contact Info) Description 01/14/2025 10:50 AM PLANTING MATERIAL REMOVER Office Visit [facility] [address] [facility] [place] [address] Nava Melo MD [address] [place] [address] Health Maintenance Due Date Last Done Comments [...] FABIANO BILAT SCREEN Routine 11/28/2018 3:09 PM PLANTING MATERIAL REMOVER Visit for screening mammogram from Last 3 Months or Most Recently Relevant to Health Maintenance Results * XR MAMMO FABIANO BILAT SCREEN (11/28/2018 3:09 PM PLANTING MATERIAL REMOVER) Anatomical Region Laterality Modality BREASTS, Breast Left, Breast Right Bilateral Mammography Impressions 12/01/2018 11:06 AM PLANTING MATERIAL REMOVER There is no radiographic evidence for malignancy. Recommend annual mammograms. A lay language report of this examination will be provided to the patient. MAMMOGRAM ASSESSMENT: ACR 1 Negative Narrative 12/01/2018 11:06 AM PLANTING MATERIAL REMOVER XR MAMMO FABIANO BILAT SCREEN [[id number]] CLINICAL HISTORY: This is an asymptomatic 48 [...] Recently Relevant to Health Maintenance Care Teams Sectionizer Relationship Specialty Start Date End Date Beena Barajas MD [facility] [place] [address] PCP - General Family Practice 01/18/21
--- OUTSIDE RECORDS SUMMARY | 2025-01-12 22:29 | XMS_ITS | Clinical Summary ---
Author Organization [facility] Address [address] [place] [address] Care Team Providers Care Relay Record Clerk Name Role Phone Needs Pcp, Assignment Primary Care Provider [phone] Source Comments You are receiving this document [...] for each transition of care or referral. [facility] Allergies No known active allergies Medications MetFORMIN [...] smear of cervix (LGSIL) 03/10/2020 Overview (03/10/2020): [facility] Review: History: 05/2007: COLP- SE 1 [...] Department Care Team Description 10/21/2024 8:20 AM MANAGER DELI Lab Visit [facility] [address] [place] [address] Type 2 diabetes mellitus without [...] Comments Blood Pressure 115/56 01/14/2020 2:03 PM MANAGER DELI Pulse 70 01/14/2020 2:03 PM MANAGER DELI Temperature - - Respiratory Rate - - Oxygen Saturation - - Inhaled Oxygen Concentration - - Weight 49.8 kg (109 lb 11.2 oz) 01/14/2020 2:03 PM MANAGER DELI Height 147.3 cm (4' 10) 09/07/2016 1:05 PM CDT Body Mass Index 22.93 09/07/2016 1:05 PM CDT Plan of Treatment Upcoming Encounters Date Type Department Care Team (Late st Contact Info) Description 02/06/2025 8:00 AM CDT Appointment [facility] [address] [place] [address] Health Maintenance Due Date Last [...] Comments HGB A1C Routine 10/21/2024 7:51 AM MANAGER DELI Type 2 diabetes mellitus without complication, without long-term current use of insulin (HRC) MM MAMMOGRAM SCREENING BILAT W 3D FABIANO W CAD Routine 10/10/2024 1:11 PM MANAGER DELI Breast cancer screening by mammogram ALBUMIN/CREAT RATIO [...] * (ABNORMAL) Hgb A1C (10/21/2024 7:51 AM MANAGER DELI) Hemoglobin A1C (Rapid) 7.5(H) <=5.6 % 10/21/2024 10:[address] [facility] Estimated Average Glucose (Calc) 169 < 117 mg/dL 10/21/2024 10:[address] [facility] Comment:Estimated average gl ucose (eAG) converts A1c into glucose units (mg/dL) and estimates average glucose over the past approximately 3 months. The eAG reference interval (<117 mg/dL) corresponds to an A1c of <5.7%. Blood Venipuncture / Unknown 10/21/2024 7:51 AM MANAGER DELI 10/21/2024 8:36 AM MANAGER DELI Narrative [facility] - 10/21/2024 10:24 AM MANAGER DELI For patients not previously diagnosed with diabetes: [...] us Beena Barajas MD LAB_1 Final Result [facility] [address] [place] [address], [facility] * MM Mammogram Screening Bilat W 3D Fabiano W CAD (10/10/2024 1:11 PM MANAGER DELI) Anatomical Region Laterality Modality Breast Bilateral Mammography Impressions 10/12/2024 10:17 AM MANAGER DELI : ACR BI-RADS Category 1: Negative RECOMMENDATION: Follow Up Imaging in 12 months - Bilateral The results and recommendations of this examination will be communicated to the patient. Narrative 10/12/2024 10:17 AM MANAGER DELI MM MAMMOGRAM SCREENING BILAT W 3D FABIANO W CAD performed on 10/10/24 FDA Accredited Facility: [facility] [phone] Compared to: 02/21/2023 MM Mammogram Screening Bilat [...] 34(H) <30 mg/g 02/15/2024 12:22 PM T [facility] Albumin, Urine, Random 16.9 mg/L 02/15/2024 12:22 PM [facility] Creatinine, Urine, Random 49 >20 mg/dL mg/dL 02/15/2024 12:22 PM [facility] Urine Non-blood Collection / Unknown 02/15/2024 10:07 AM CDT 02/15/2024 10:07 AM CDT Beena Barajas MD LAB_1 Final Result [facility] [address] [place] [address] * Lipid Panel (reflex to Direct LDL if indicated) (02/15/2024 9:45 AM CDT) Cholesterol 148 0 - 199 mg/dL 02/15/2024 11:49 AM T [facility] Triglyceride 126 <=149 mg/dL 02/15/2024 11:49 AM [facility] HDL Cholesterol 42 >=40 mg/dL 11:49 AM [facility] LDL, Calculated 81 <130 mg/dL 11:49 AM [facility] Non HDL Chol, Calculated 106 <=159 mg/dL 02/15/2024 11:49 AM [facility] Cholesterol/HDL Ratio 3.5 <=5.0 02/15/2024 11:49 AM [facility] Hours Fasting 10.0 8 - 12 Hours 02/15/2024 11:49 AM [facility] Blood Venipuncture / Unknown 02/15/2024 9:45 AM CDT 02/15/2024 9:53 AM CDT us Beena Barajas MD LAB_1 Final Result [facility] [address] [place] [address] * (ABNORMAL) Comp Metabolic Panel (02/15/2024 9:45 AM CDT) Sodium 137 136 - 145 mmol/L 02/15/2024 11:49 AM [facility] Potassium 4.4 3.5 - 5.1 mmol/L 02/15/2024 11:49 AM [facility] Chloride 104 98 - 109 mmol/L 02/15/2024 11:49 AM [facility] CO2 24 20 - 29 mmol/L 02/15/2024 11:49 AM [facility] Anion Gap 9 7 - 16 mmol/L 02/15/2024 11:49 AM [facility] Calcium 9.9 8.4 - 10.4 mg/dL 02/15/2024 11:49 AM [facility] BUN 27(H) 7 - 26 mg/dL 02/15/2024 11:49 AM [facility] Creatinine 1.30(H) 0.55 - 1.02 mg/dL 02/15/2024 11:49 AM [facility] Alkaline Phosphatase 116 40 - 150 U/L 02/15/2024 11:49 AM [facility] AST (SGOT) 22 10 - 40 U/L 02/15/2024 11:49 AM [facility] ALT (SGPT) 17 <=55 U/L 02/15/2024 11:49 AM [facility] Bilirubin, Total 0.3 0.2 - 1.2 mg/dL 02/15/2024 11:49 AM [facility] Protein, Total 7.6 6.4 - 8.3 g/dL 02/15/2024 11:49 AM [facility] Albumin 3.7 3.5 - 5.0 g/dL 02/15/2024 11:49 AM [facility] Glucose 131(H) 70 - 100 mg/dL 02/15/2024 11:49 AM [facility] Comment:The given reference range is for the fasting state. Non-fasting reference range for glucose is 70 - 180 mg/dL. GFR, Estimated 49(L) >60 mL/min/1.7 3m2 02/15/2024 11:49 AM [facility] Hours Fasting 10.0 8 - 12 Hours 02/15/2024 11:49 AM [facility] Blood Venipuncture / Unknown 02/15/2024 9:45 AM CDT 02/15/2024 9:53 AM CDT Narrative [facility] - 02/15/2024 11:49 AM CDT The National Kidney Disease Education Program suggests measuring Cystatin C in patients with eGFRcrea of 45 to 59 ml/min/1.73^2 who do not have other markers of kidney damage (i.e. elevated urine Albumin/Creatinine Ratio or a prior Cystatin C confirming the presence of chronic kidney disease). us Beena Barajas MD LAB_1 Final Result [facility] [address] [place] [address], [facility] * Pap Smear (08/07/2016 3:41 PM CDT) 08/07/2016 3:41 PM CDT Narrative [facility] - 08/14/2016 5:30 PM CDT FINAL GYNECOLOGICAL CYTOLOGY REPORT Pathology #: [id number] Date Obtained: 08/07/2016 Date Received: 08/08/2016 [id number] INTERPRETATION/RESULTS: Atypical squamous cells of undetermined significance [...] and false-negative reports may occur. Performed at [address] [address] us Darnell Torres MD LAB_1 Final Res ult [facility] [address] [place] [address] [id number] from Last 3 Months or Most Recently Relevant to Health Maintenance Care Teams Relay Record Clerk Relationship Specialty Start Date End Date Needs PcpJames [place]B [place], [place] [phone] PCP - General 11/04/13
[2025-01-12] MEDS: KETOROLAC 15 MG/ML inj IVP (22:33)
[2025-01-12 22:38] LABS: Albumin* 4.4 g/dL (3.3-5.0); Chloride* 100 mmol/L (96-114)
[2025-01-12] MEDS: GI COCKTAIL (VISC LIDO/ANTACID) 30 ML PO (22:38)
[2025-01-12 22:39] LABS: Potassium* 4.5 mmol/L (3.6-5.1); Sodium* 134 mmol/L (135-149)
[2025-01-12 22:41] LABS: Alanine Aminotransferase* 24 U/L (4-35); Alkaline Phosphatase* 114 U/L (40-150); Anion Gap 11 mEq/L (7-15); Aspartate Amino Transferase* 33 U/L (12-35); Bilirubin Total* 0.3 mg/dL (0.1-1.5); Blood Urea Nitrogen* 26 mg/dL (7-30); Calcium* 9.4 mg/dL (8.4-10.6); Carbon Dioxide* 23 mmol/L (20-32); Creatinine* 1.3 mg/dL (0.5-1.5); Estimated Glomerular Filt Rate 48 ml/min; Glucose* 110 mg/dL (60-115); Lipase* 344 U/L (23-300); Total Protein* 7.2 g/dL (6.0-8.3)
[2025-01-12 22:42] LABS: Magnesium* 1.8 mg/dL (1.5-2.6)
[2025-01-12 22:48] LABS: D Dimer Quantitative* 0.32 ug/ml (0.00-0.50)
[2025-01-12 22:54] LABS: PCR FLU A POSITIVE PCR FLU A (Negative); PCR FLU B Negative PCR FLU B (Negative); PCR RSV Negative PCR RSV (Negative); SARS PCR* Negative SARS-CoV-2 (Negative)
[2025-01-12 22:59] LABS: Basophils Percent Auto 0.3 % (0.0-3.0); Eosinophils Percent Auto 3.9 % (0.0-7.0); Hematocrit 30.6 % (33.0-51.0); Hemoglobin* 9.8 gm/dL (12.0-16.0); Immature Granulocytes Pct Auto 0.3 %; Lymphocytes Percent Auto 32.8 % (20-44); Mean Corpuscular HGB Conc 32 gm/dL (32-36); Mean Corpuscular Hemoglobin 27 pg (26-34); Mean Corpuscular Volume 84 fL (80-100); Monocytes Percent Auto 9.3 % (0.0-11.0); Neutrophils Percent Auto 53.4 % (42.0-72.0); Platelet Count* 211 K/uL (140-440); RDW Coefficient of Variation % 14.3 % (11.5-15.5); Red Blood Count 3.64 m/uL (4.00-5.20); White Blood Count* 3.11 K/uL (4.50-11.00)
[2025-01-12 23:04] LABS: Slide Review Reflex No
--- NOTE | 2025-01-12 23:05 | CRLHL7_ITS ---
For Patients: As a result of the Cures Act, medical imaging exams and procedure reports are released immediately into your electronic medical record. You may view this report before your referring provider. If you have questions, please contact your health care provider. INDICATION: Cough, influenza. TECHNIQUE: Chest 2 views. COMPARISON: None. FINDINGS: Cardiovascular and mediastinum: Heart size and vasculature are normal in caliber and appearance. Lungs and pleural spaces: Lungs are clear. No sign of infiltrate or mass. No sign of pleural effusion. No pneumothorax. Bones and soft tissues: No significant findings. IMPRESSION: No acute or significant findings. Dictated by Jae Frankel MD @ 01/12/2025 11:43:34 PM (Electronically Signed)
--- NOTE | 2025-01-12 23:05 | CRLHL7_ITS ---
For Patients: As a result of the Century Cures Act, medical imaging exams and procedure reports are released immediately into your electronic medical record. You may view this report before your referring provider. If you have questions, please contact your health care provider. INDICATION: Epigastric/left flank pain. TECHNIQUE: CT abdomen and pelvis acquired with 49 cc Isovue 370 IV contrast. COMPARISON: None. FINDINGS: Lower chest: Unremarkable. Liver: Unremarkable. Normal in size and attenuation. No suspicious masses. Gallbladder and bile ducts: Unremarkable. No stones or inflammation. No biliary dilatation. Pancreas: Unremarkable. No mass or inflammation. Spleen: Unremarkable. Normal in size. No masses. Adrenal glands: Unremarkable. No nodules. Kidneys: Unremarkable. No suspicious masses, stones, or hydronephrosis. GI tract: Moderate colonic stool burden. Normal in caliber. No sign of mass or inflammation. Normal appendix. Vasculature: Abdominal aorta is normal in caliber. Mesenteric arteries are patent. Lymph nodes: No lymphadenopathy. Peritoneum/Abdominal Wall: Unremarkable. No sign of mass or infiltration. No free air or significant free fluid. Pelvis: Mildly distended bladder with circumferential wall thickening. Recommend correlation with urinalysis if UTI suspected. Bones: Unremarkable for age. IMPRESSION: No acute intra-abdominal/pelvic abnormality, including obstructive uropathy. Moderate colonic stool burden. Please note that all CT scans at this facility use dose modulation, iterative reconstruction, and/or weight-based dosing when appropriate to reduce radiation dose to as low as reasonably achievable. Dictated by Jae Frankel MD @ 01/12/2025 11:48:05 PM (Electronically Signed)
[2025-01-12 23:23] LABS: Troponin I* < 0.01 ng/mL (0.01-0.04)
[2025-01-13] MEDS: OSELTAMIVIR PHOSPHATE 75 MG CAPSULE PO
== END 2025-01-13 00:12 | disposition home or self-care (01) ==
PROVIDERS: Emergency Provider Student in an Organized Health Care Education/Training Program
DX: J10.1 Influenza due to other identified influenza virus with other respiratory manifestations (principal)
CPT/HCPCS: 36415; 71046; 74177; 80053; 81001; 83690; 83735; 84484; 85025; 85379; 87631; 96374; 99284; 99285; A9270; J1885; Q9967